=== PATIENT | female | born 1965 | race African-American/Black ===

== ENCOUNTER 2021-07-02 09:34 | Day surgery (SDC) | payer BC ==
[2021-06-28 08:52] VITALS: BMI 33.1
[2021-07-02] MEDS ORDERED: LIDOCAINE HCL/PF 2% SDV 5ML VIAL ONE (11:03)
[2021-07-02] MEDS ORDERED: PROPOFOL 20 ML ONE ×2 (11:04)
[2021-07-02] MEDS ORDERED: GLYCOPYRROLATE 0.2 MG/1 ML VIAL ONE (11:04)
[2021-07-02 11:13] VITALS: TEMP 97.7
[2021-07-02 11:44] VITALS: BP 110/74; PULSE 84
== END 2021-07-02 11:25 | disposition home or self-care (01) ==
LOC: FASU-ENDO 09:34
PROVIDERS: ATTEND Internal Medicine Gastroenterology
PROC: 0DB68ZX Excision of Stomach, Via Natural or Artificial Opening Endoscopic, Diagnostic (ICD-10-PCS; 2021-07-02)
PROC: 0DB48ZX Excision of Esophagogastric Junction, Via Natural or Artificial Opening Endoscopic, Diagnostic (ICD-10-PCS; 2021-07-02)
PROC: 0DB98ZX Excision of Duodenum, Via Natural or Artificial Opening Endoscopic, Diagnostic (ICD-10-PCS; principal; 2021-07-02 10:41)
DX: K29.80 Duodenitis without bleeding (principal); K29.50 Unspecified chronic gastritis without bleeding; K20.90 Esophagitis, unspecified without bleeding; R10.9 Unspecified abdominal pain
CPT/HCPCS: 88305-TC; 88342-TC